=== PATIENT | female | born 1955 | race Caucasian/White ===

== ENCOUNTER → 2017-02-20 | Outpatient (CLI) | payer MEDICARE, OTHER ==
[~2017-02-20] MED LIST: ANTIBIOTIC; CEPHALEXIN500 M1 PO; COUMADIN5 MG PO; FLEXERIL 1010 MG/TAB PO; LOVENOX100 MG/M1 IJ; NORCO 325 MG-51 TAB PO; UNABLE; VENTOLIN0.09 MG IH; VIBRAMYCIN HYC100 MG PO
== END ==
LOC: SUN.DIA 16:21
DX: E11.9 Type 2 diabetes mellitus without complications (principal); Z87.891 Personal history of nicotine dependence; Z71.3 Dietary counseling and surveillance
CPT/HCPCS: G0109

== ENCOUNTER → 2017-02-26 | Outpatient (CLI) | payer MEDICARE, OTHER | LOC: SUN.DIA 09:30 | DX: E11.9 Type 2 diabetes mellitus without complications (principal); E66.9 Obesity, unspecified; Z71.3 Dietary counseling and surveillance; E78.5 Hyperlipidemia, unspecified; I10 Essential (primary) hypertension; Z87.891 Personal history of nicotine dependence | CPT/HCPCS: G0108 ==

== ENCOUNTER → 2017-02-27 | Outpatient (CLI) | payer MEDICARE, OTHER | LOC: SUN.DIA 16:20 | DX: E11.9 Type 2 diabetes mellitus without complications (principal); E78.5 Hyperlipidemia, unspecified; I10 Essential (primary) hypertension; E66.9 Obesity, unspecified; Z71.3 Dietary counseling and surveillance; Z87.891 Personal history of nicotine dependence | CPT/HCPCS: G0109 ==

== ENCOUNTER → 2017-03-06 | Outpatient (CLI) | payer MEDICARE, OTHER | LOC: SUN.DIA 08:59 | DX: E11.9 Type 2 diabetes mellitus without complications (principal); E78.5 Hyperlipidemia, unspecified; I10 Essential (primary) hypertension; E66.9 Obesity, unspecified; Z71.3 Dietary counseling and surveillance; Z87.891 Personal history of nicotine dependence | CPT/HCPCS: G0109 ==

== ENCOUNTER → 2017-03-13 | Outpatient (CLI) | payer MEDICARE, OTHER | LOC: SUN.DIA 14:46 | DX: E11.9 Type 2 diabetes mellitus without complications (principal); E78.5 Hyperlipidemia, unspecified; I10 Essential (primary) hypertension; E66.9 Obesity, unspecified; Z71.3 Dietary counseling and surveillance; Z87.891 Personal history of nicotine dependence | CPT/HCPCS: G0109 ==

== ENCOUNTER → 2017-03-19 | Outpatient (CLI) | payer MEDICARE, OTHER | LOC: SUN.DIA 10:31 | DX: E11.9 Type 2 diabetes mellitus without complications (principal); E78.5 Hyperlipidemia, unspecified; I10 Essential (primary) hypertension; E66.9 Obesity, unspecified; Z71.3 Dietary counseling and surveillance; Z87.891 Personal history of nicotine dependence ==

== ENCOUNTER → 2017-09-18 | Outpatient (CLI) | payer MEDICARE | LOC: SUN.DIA 08:56 | DX: E11.9 Type 2 diabetes mellitus without complications (principal); E78.5 Hyperlipidemia, unspecified; I10 Essential (primary) hypertension; E66.9 Obesity, unspecified; Z71.3 Dietary counseling and surveillance; Z87.891 Personal history of nicotine dependence ==

== ENCOUNTER 2018-01-09 09:15 | Outpatient (RCR) | payer MEDICARE, BC | END 2018-01-09 11:20 | disposition home or self-care (01) | LOC: MKS.ESL.PT 09:15 | DX: S93.402D Sprain of unspecified ligament of left ankle, subsequent encounter (principal) | CPT/HCPCS: G8979-GP; G8980-GP ==

== ENCOUNTER → 2019-05-07 | Outpatient (CLI) | payer MEDICARE ==
[~2019-05-07] MED LIST changes: +FLEXERIL5 MG PO; +INDERAL40 MG PO; +LIPITOR 10MG10 MG PO
== END ==
LOC: MC.RAD 15:58
DX: Z12.31 Encounter for screening mammogram for malignant neoplasm of breast (principal)

== ENCOUNTER 2019-05-08 14:53 | Emergency (ER) | payer MEDICARE ==
[~2019-05-08] VITALS: Ht 175.3 cm; Wt 90.9 kg
[2019-05-08 14:53] VITALS: TEMP 97
[~2019-05-08 14:53] MED LIST changes: -FLEXERIL5 MG PO; -INDERAL40 MG PO; -LIPITOR 10MG10 MG PO
[2019-05-08] MEDS ORDERED: LIPITOR 10MG10 MG PO (15:00)
[2019-05-08] MEDS ORDERED: INDERAL40 MG PO (15:01)
[2019-05-08 16:05] LABS: BASO # 0.1 (0.0-0.2); BASO % 0.7 % (0.0-2.0); EOS # 0.4 (0.0-0.7); EOS % 4.5 % (0-4.0); HEMATOCRIT 43.4 % (37.0-47.0); LYMPH # 2.7 (1.2-3.4); LYMPH % 30.7 % (20.0-51.0); MEAN CELL VOLUME 98 fl (80.0-100.0); MEAN CORPUSCULAR HEMOGLOBIN 32 pg (27.0-31.0); MEAN CORPUSCULAR HGB CONC 32 g/dl (33.0-37.0); MEAN PLATELET VOLUME 9.5 fl (7.4-10.4); MONO # 0.6 (0.1-0.6); MONO % 6.9 % (1.7-9.3); PLATELET COUNT 244 K/mm3 (130-400); RED BLOOD COUNT 4.41 M/mm3 (4.10-5.30); REDCELL DISTRIBUTION WIDTH-CV 12.6 % (11.5-14.5)
[2019-05-08 16:10] LABS: INR 3.3 (0.8-3.0); PROTHROMBIN TIME 40.4 SECONDS (9.7-12.8)
[2019-05-08 16:29] LABS: ALBUMIN 3.6 gm/dL (3.5-5.0); BILIRUBIN,TOTAL 0.4 mg/dL (0.0-1.0); CALCIUM 8.7 mg/dL (8.4-10.2); CREATININE, serum 0.6 (0.52-1.25); POTASSIUM 4.3 mmol/L (3.4-5.0); TOTAL PROTEIN 6.3 gm/dL (6.4-8.2)
[2019-05-08] MEDS ORDERED: NORCO 325 MG-51 TAB PO (17:07)
[2019-05-08] MEDS ORDERED: FLEXERIL5 MG PO (17:07)
[2019-05-08 17:51] VITALS: BP 179/88; PULSE 55
== END 2019-05-08 17:57 | disposition home or self-care (01) ==
LOC: COL.ER 14:53
PROVIDERS: Emergency Medicine
DX: S70.02XA Contusion of left hip, initial encounter (principal); S60.511A Abrasion of right hand, initial encounter; S00.81XA Abrasion of other part of head, initial encounter; Z79.01 Long term (current) use of anticoagulants; Z23 Encounter for immunization; E78.5 Hyperlipidemia, unspecified; Z86.718 Personal history of other venous thrombosis and embolism; Z87.891 Personal history of nicotine dependence; W19.XXXA Unspecified fall, initial encounter; Y92.481 Parking lot as the place of occurrence of the external cause
CPT/HCPCS: J2405; J3010

== ENCOUNTER → 2019-05-21 | Outpatient (CLI) | payer MEDICARE ==
[~2019-05-21] MED LIST changes: +FLEXERIL5 MG PO; +INDERAL40 MG PO; +LIPITOR 10MG10 MG PO
== END ==
LOC: COL.CARD 11:52
DX: R94.31 Abnormal electrocardiogram [ECG] [EKG] (principal); R00.1 Bradycardia, unspecified

== ENCOUNTER → 2020-09-01 | Outpatient (CLI) | payer MEDICARE | LOC: COL.RAD 08:00 | DX: J84.10 Pulmonary fibrosis, unspecified (principal); I77.810 Thoracic aortic ectasia; K44.9 Diaphragmatic hernia without obstruction or gangrene | CPT/HCPCS: Q9967 ==

== ENCOUNTER → 2023-06-27 | Outpatient (REF) | payer MEDICARE | LOC: ZCOL.LAB 15:49 | DX: B36.9 Superficial mycosis, unspecified (principal) ==

== ENCOUNTER → 2024-01-21 | Outpatient (CLI) | payer MEDICARE | LOC: COL.RAD 11:52 | DX: Z12.2 Encounter for screening for malignant neoplasm of respiratory organs (principal); Z87.891 Personal history of nicotine dependence ==